=== PATIENT | male | born 1975 | race Hispanic/Latino ===

== ENCOUNTER 2016-08-20 22:22 | Emergency (ER) | payer SELFPAY ==
[~2016-08-20] VITALS: Ht 166.4 cm; Wt 97.8 kg
[~2016-08-20 22:22] MED LIST: AMOXICILLIN500 MG PO; CIPROFLOXACN500 MG PO; CLONIDINE0.1 MG PO; FLOMAX0.4 M1 PO; LORTAB 5-325 MG1 TAB PO; NO HOME MEDS; ZOFRAN4 MG/TAB PO
[2016-08-20] MEDS ORDERED: METFORMIN HCL500 M1 PO (22:44)
[2016-08-20] MEDS ORDERED: HYDROCHLOROT12.5 M1 PO (22:44)
[2016-08-20 23:27] LABS: HEMATOCRIT 46.1 % (39.0-50.0); HEMOGLOBIN 15.6 g/dl (14.0-18.0); IMMATURE GRANULOCYTES 0.4 % (0.0-1.0); MEAN CELL VOLUME 88.3 fL CALC (80.0-100.0); MEAN CORPUSCULAR HGB 29.9 pG CALC (26.0-32.0); MEAN CORPUSCULAR HGB CONC 33.8 g/L CALC (32.0-36.0); NEUT# 7.47 thou/uL (1.82-7.42); RED BLOOD COUNT 5.22 mill/uL (4.70-6.10); RED CELL DISTRI WIDTH 12.4 % (11.5-15.5)
[2016-08-20 23:34] LABS: URINE BILIRUBIN - DIPSTICK NEGATIVE (NEGATIVE); URINE BLOOD DIPSTICK SMALL (NEGATIVE); URINE CLARITY CLEAR; URINE COLOR YELLOW; URINE GLUCOSE - DIPSTICK NEGATIVE (NEGATIVE); URINE KETONE NEGATIVE (NEGATIVE); URINE LEUK ESTERASE NEGATIVE (NEGATIVE); URINE NITRITE - DIPSTICK NEGATIVE (Negative); URINE PH 5.5 (4.5-8.0); URINE PROTEIN - DIPSTICK NEGATIVE (NEG-TRACE); URINE SPECIFIC GRAVITY <=1.005; URINE UROBILINOGEN - DIPSTICK 0.2 E.U./dL (0.2)
[2016-08-20 23:49] LABS: URINE WBC 0-2 WBC/hpf (0-5)
[2016-08-20 23:52] LABS: ALBUMIN 4.5 g/dL (3.2-5.0); ALKALINE PHOSPHATASE 84 u/l (38-126); ANION GAP 19 (6-22 (CALC)); BILIRUBIN, TOTAL 1.5 mg/dL (0.0-1.4); BUN 10 mg/dL (9-20); BUN/CREATININE RATIO 7 (12-20 (CALC)); CALCIUM 9.7 mg/dL (8.4-10.2); CARBON DIOXIDE 26 mmol/l (22-30); CHLORIDE 97 mmol/l (95-108); CREATININE 1.4 mg/dL (0.7-1.3); GFR 55 ML/MIN (>=60 (CALC)); GFR FOR AFR.AMER. > 60 ML/MIN (>=60 (CALC)); GLUCOSE 104 mg/dL (75-110); POTASSIUM 4.4 mmol/l (3.5-5.1); SGOT/AST 23 u/l (17-59); SGPT/ALT 47 u/l (21-72); SODIUM 137 mmol/l (137-146); TOTAL PROTEIN 8.5 g/dL (6.3-8.2)
[2016-08-21] MEDS ORDERED: PERCOCET 5/325M1 TAB PO (00:36)
[2016-08-21 00:50] VITALS: BP 122/77
== END 2016-08-21 00:50 | disposition home or self-care (01) | DRG 694 ==
LOC: ED 22:22
PROVIDERS: Emergency Medicine
DX: N13.2 Hydronephrosis with renal and ureteral calculous obstruction (principal); N28.9 Disorder of kidney and ureter, unspecified; Z87.442 Personal history of urinary calculi

== ENCOUNTER 2019-10-10 07:12 | Observation (INO) | payer SELFPAY ==
[~2019-10-10] VITALS: Ht 170.2 cm; Wt 104.3 kg
[~2019-10-10 07:12] MED LIST changes: +HYDROCHLOROT12.5 M1 PO; +METFORMIN HCL500 M1 PO; +PERCOCET 5/325M1 TAB PO
--- NOTE | 2019-10-10 07:15 | NUR ---
PT AMB TO ROOM WITH STEADY GAIT
[2019-10-10] MEDS ORDERED: ZESTRIL10 M1 PO (07:44)
[2019-10-10 07:56] LABS: HEMATOCRIT 47.6 % (39.0-50.0); HEMOGLOBIN 16.3 g/dl (14.0-18.0); IMMATURE GRANULOCYTES 0.4 % (0.0-5.0); MEAN CELL VOLUME 88.3 fL CALC (80.0-100.0); MEAN CORPUSCULAR HGB 30.2 pG CALC (26.0-32.0); MEAN CORPUSCULAR HGB CONC 34.2 g/dL CAL (32.0-36.0); NEUT# 4.2 thou/uL (1.82-7.42); RED BLOOD COUNT 5.39 mill/uL (4.70-6.10); RED CELL DISTRI WIDTH 12.7 % (11.5-15.5)
--- NOTE | 2019-10-10 08:00 | NUR ---
PT C/O WORSENING CHEST PRESSURE AND SOB; PT MEDICATED PER MAR; MONITORING DEVICES IN PLACE; O2 APPLIED OFR PT COMFORT; ADVISED OF CONTINUED WAIT TIME; CALL LIGHT WITHIN REACH; WILL CONTINUE TO MONITOR
[2019-10-10 08:09] LABS: ALBUMIN 4.7 g/dL (3.2-5.0); ALKALINE PHOSPHATASE 86 u/l (38-126); ANION GAP 15 (6-22 (CALC)); BUN 12 mg/dL (9-20); BUN/CREATININE RATIO 15 (12-20 (CALC)); CARBON DIOXIDE 27 mmol/l (22-30); CHLORIDE 100 mmol/l (95-108); CREATININE 0.8 mg/dL (0.7-1.3); GFR > 60 ML/MIN (>=60 (CALC)); GFR FOR AFR.AMER. > 60 ML/MIN (>=60 (CALC)); POTASSIUM 4.6 mmol/l (3.5-5.1); SODIUM 138 mmol/l (137-146); TOTAL PROTEIN 8.5 g/dL (6.3-8.2)
[2019-10-10 08:16] LABS: BILIRUBIN, TOTAL 1.2 mg/dL (0.0-1.4); SGOT/AST 45 u/l (17-59)
--- NOTE | 2019-10-10 08:19 | NUR ---
PT C/O FEELING CHILLS AND DIZZY; BP READING 65/39 HR 44 ; MD AT BEDSIDE; PT PLACED IN [place] AND EKG REPEATED; MEDICATED WITH ATROPINE PER MD; PT TOLERATED WELL REAPT B/P 92/54 HR 52; 0825 PT REPORTS FEELING BETTER AT THIS TIME HR 72 BP 102/62 PT DENIES CP AT THIS TIME; WILL CONTINUE TO MONITOR
--- NOTE | 2019-10-10 08:54 | NUR ---
PT RESTING ON STRETCHER; DENIES ANY CHEST PRESSURE AT THIS TIME; IVF INFUSING; VSS; DR DAWSON AT BEDSIDE TO DISCUSS POC AND PLAN TO ADMIT; CALL LIGHT WITHIN REACH; WILL CONTINUE TO MONITOR
--- NOTE | 2019-10-10 09:04 | NUR ---
SBAR PRINTED TO FLOOR
--- NOTE | 2019-10-10 10:00 | NUR ---
PT RESTING ON STRETCHER; DENIES ANY CP OR SOB AT THIS TIME; PT ADVISED OF CONTINUE WAIT TIME FOR ADMISSION; VSS; WILL CONTINUE TO MONITOR
[2019-10-10 10:25] VITALS: BP 124/78
--- NOTE | 2019-10-10 10:25 | NUR ---
Admission Note Report Given to: SAUL PRESTON Transported by: X Wheelchair Stretcher Transported with: X Nurse Transporter X Patent IV O2 X Nib Adjuster Location: ICU X [facility]
--- NOTE | 2019-10-10 10:25 | NUR ---
PT ARRIVED TO [facility] VIA WHEELCHAIR, PT AMBULATORY WITH STEADY GAIT, NO SIGNS OF DISTRESS NOTED, RESP EVEN AND UNLABORED. ORIENTED PT TO ROOM AND CALL LIGHT, DISCUSSED POC, DENIES CP AT THIS TIME. ADMISSION ASSESSMENT COMPLETED, CALL LIGHT IN REACH,CONTINUE TO MONITOR.
--- NOTE | 2019-10-10 12:00 | NUR ---
PT RESTING IN BED, NO SIGNS OF DISTRESS NOTED, RESP EVEN AND UNLABORED. VOICES NO NEEDS OR COMPLAINTS AT THIS TIME, CALL LIGHT IN REACH,CONTINUE TO MONITOR.
--- NOTE | 2019-10-10 15:33 | NUR ---
PT RESTING IN BED ON HIS PHONE, NO SIGNS OF DISTRESS NOTED, RESP EVEN AND UNLABORED. CALL LIGHT IN REACH,CONTINUE TO MONITOR.
[2019-10-10 16:30] VITALS: BP 110/70
[2019-10-10 18:48] VITALS: BP 113/63
--- NOTE | 2019-10-10 20:10 | NUR ---
PT RESTING IN BED, ALERT AND ORIENTED. RESPIRATIONS EVEN AND UNLABORED ON RA. LUNGS SOUND CLEAR. PEDAL PULSES STRONG. PT DENIES ANY PAIN OR DISCOMFORT AT THIS TIME SAFETY PRECAUTIONS IN PLACE. WILL CONTINUE TO [place].
[2019-10-11 00:11] VITALS: BP 122/71
--- NOTE | 2019-10-11 00:12 | NUR ---
PT RESTING IN BED, RESPIRATIONS EVEN AND UNLABORED ON RA. TELE IN PLACE. NO S/S OF DISTRESS AT THIS TIME. SAFTY PRECAUTIONS IN PLACE. WILL CONTINUE TO MONITOR.
--- NOTE | 2019-10-11 03:37 | NUR ---
PT RESTING IN BED, NO S/S OF DISTRESS AT THIS TIME. SAFETY PRECAUTIONS IN PLACE. WILL CONTINUE TO MONITOR.
[2019-10-11 04:13] VITALS: BP 117/73
[2019-10-11 05:27] LABS: ANION GAP 13 (6-22 (CALC)); BUN 13 mg/dL (9-20); BUN/CREATININE RATIO 15 (12-20 (CALC)); CARBON DIOXIDE 27 mmol/l (22-30); CHLORIDE 103 mmol/l (95-108); CREATININE 0.9 mg/dL (0.7-1.3); GFR > 60 ML/MIN (>=60 (CALC)); GFR FOR AFR.AMER. > 60 ML/MIN (>=60 (CALC)); POTASSIUM 4.8 mmol/l (3.5-5.1); SODIUM 137 mmol/l (137-146)
[2019-10-11 05:30] LABS: CHOLESTEROL HDL RATIO 5.7 (<4.4 (CALC))
--- NOTE | 2019-10-11 07:30 | NUR ---
RECIEVED REPORT FROM HILDA FLOOD. PT RESTING IN RECYLINER UPON ENTERING ROOM.INTODUCED SELF TO PT AND DISCUSSED POC. ASSESSMENT AND VITALS COMPLETED AT THIS TIME. BP 127/77, HR 50, O2 96% ON ROOM AIR. RESPIRATIONS ARE EVEN AND UNLABORED WITH NO SIGNS OF DISTRESS. LUNG SOUNDS ARE CLEAR. HEART RHYTHM IS NORMAL WITH TELE IN PLACE. BOWEL SOUNDS ARE ACTIVE IN ALL QUADRANTS WITH NO TENDERNESS. LAST REPORTED BM 10/10/19. RADIAL AND PEDAL PULSES ARE STRONG WITH NORMAL CAPILLARY REFILL. SKIN IS WARM AND DRY WITH NO BREAKDOWN. PT DENIES ANY PAIN OR DISCOMFORTS AT THIS TIME. ALL SAFETY PRECAUTIONS REMAIN IN PLACE WITH CALL LIGHT IN REACH.WILL CONTINUE TO MONITOR
[2019-10-11 07:47] VITALS: BP 127/77
[2019-10-11 11:27] VITALS: BP 128/90
--- NOTE | 2019-10-11 12:33 | NUR ---
PT SITTING IN RECYLINER ON PHONE. RESPIRATIONS ARE EVEN AND UNLABORED WITH NO SIGNS OF DISTRESS. PT DENIES ANY PAIN OR DISCOMFORTS AT THIS TIME.ALL SAFTEY PRECAUTIONS IN PLACE WITH CALL LIGHT IN REACH. WILL CONTINUE TO MONITOR
--- NOTE | 2019-10-11 12:39 | NUR ---
DR. STRONG AND FIFI, ANDEB AT BEDSIDE DISCUSSING POC
--- NOTE | 2019-10-11 14:57 | NUR ---
IV REMOVED WITH CATHATER STILL INTACT. PT TOLERATED WELL. EDUCATED PT ON DISCHARGE INSTRUCTIONS AND EDUCATION. PT VERBALIZED UNDERSTANDING. AWAITING FOR TRANSPORTATION AT THIS TIME. ALL SAFTEY PRECAUTIONS IN PLACE WITH CALL LIGHT IN REACH. WILL CONTINUE TO MONITOR
--- NOTE | 2019-10-11 15:07 | NUR ---
Discharge instructions given. Patient verbalizes understanding of same. Discharged in stable condition via Wheelchair to Home with family. All belongings sent with pt. PT LEFT FLOOR IN STABLE CONDITION VIA WHEELCHAIR ACCOMPAINED BY NAWAF JONES. ALL BELONGINGS AND DISCHARGE INSTRUCTIONS LEFT WITH PT
== END 2019-10-11 15:00 | disposition home or self-care (01) | DRG 313 ==
LOC: ED 07:12 → ED-I 08:51 → ED 09:04 → MS2 09:05
PROVIDERS: Family Medicine; Nurse Practitioner Family; ADMIT Internal Medicine; ATTEND Internal Medicine
DX: R07.9 Chest pain, unspecified (principal); I10 Essential (primary) hypertension; E11.9 Type 2 diabetes mellitus without complications; R00.1 Bradycardia, unspecified; I95.2 Hypotension due to drugs; T40.2X5A Adverse effect of other opioids, initial encounter; Z79.84 Long term (current) use of oral hypoglycemic drugs; Z20.828 Contact with and (suspected) exposure to other viral communicable diseases
CPT/HCPCS: G0378; J1650

== ENCOUNTER 2020-11-21 03:58 | Emergency (ER) | payer OTHER ==
[~2020-11-21 03:58] MED LIST changes: +ZESTRIL10 M1 PO
[2020-11-21 04:50] LABS: HEMATOCRIT 48.6 % (39.0-50.0); HEMOGLOBIN 16.2 g/dl (14.0-18.0); IMMATURE GRANULOCYTES 0.5 % (0.0-5.0); MEAN CELL VOLUME 91.2 fL CALC (80.0-100.0); MEAN CORPUSCULAR HGB 30.4 pG CALC (26.0-32.0); MEAN CORPUSCULAR HGB CONC 33.3 g/dL CAL (32.0-36.0); NEUT# 3.84 thou/uL (1.82-7.42); RED BLOOD COUNT 5.33 mill/uL (4.70-6.10); RED CELL DISTRI WIDTH 12.5 % (11.5-15.5)
[2020-11-21 04:53] LABS: URINE BILIRUBIN - DIPSTICK NEGATIVE (NEGATIVE); URINE BLOOD DIPSTICK NEGATIVE (NEGATIVE); URINE COLOR YELLOW; URINE GLUCOSE - DIPSTICK 500 mg/dL (NEGATIVE); URINE KETONE NEGATIVE (NEGATIVE); URINE LEUK ESTERASE NEGATIVE (NEGATIVE); URINE PROTEIN - DIPSTICK NEGATIVE (NEG-TRACE); URINE UROBILINOGEN - DIPSTICK 0.2 E.U./dL (0.2)
[2020-11-21 05:02] LABS: URINE NITRITE - DIPSTICK NEGATIVE (Negative)
[2020-11-21 05:09] LABS: ALBUMIN 4.2 g/dL (3.2-5.0); ALKALINE PHOSPHATASE 63 u/l (38-126); ANION GAP 12 (6-22 (CALC)); BUN 12 mg/dL (9-20); BUN/CREATININE RATIO 14 (12-20 (CALC)); CARBON DIOXIDE 26 mmol/l (22-30); CHLORIDE 102 mmol/l (95-108); CREATININE 0.9 mg/dL (0.7-1.3); GFR > 60 ML/MIN (>=60 (CALC)); GFR FOR AFR.AMER. > 60 ML/MIN (>=60 (CALC)); POTASSIUM 4.1 mmol/l (3.5-5.1); SGOT/AST 39 u/l (17-59); SODIUM 136 mmol/l (137-146); TOTAL PROTEIN 8.1 g/dL (6.3-8.2)
[2020-11-21 05:13] LABS: BILIRUBIN, TOTAL 0.5 mg/dL (0.0-1.4)
[2020-11-21 05:21] LABS: MYOGLOBIN 38 ng/mL (0 - 121)
[2020-11-21] MEDS ORDERED: NAPROXEN500 MG PO (06:26)
[2020-11-21 06:48] VITALS: BP 135/72
== END 2020-11-21 06:56 | disposition home or self-care (01) | DRG 313 ==
LOC: ED 03:58
PROVIDERS: Emergency Medicine
DX: R07.89 Other chest pain (principal); I10 Essential (primary) hypertension; E11.9 Type 2 diabetes mellitus without complications; Z79.84 Long term (current) use of oral hypoglycemic drugs; Z20.822 Contact with and (suspected) exposure to COVID-19

== ENCOUNTER 2021-07-28 02:56 | Emergency (ER) | payer OTHER ==
[2021-07-28] VITALS (7 sets, daily range): BP systolic 125–149; BP diastolic 88–102
[~2021-07-28] VITALS: Ht 170.2 cm; Wt 102.0 kg
[~2021-07-28 02:56] MED LIST changes: +NAPROXEN500 MG PO
[2021-07-28] MEDS ORDERED: GLIMEPIRIDE2 MG PO (03:32)
[2021-07-28] MEDS ORDERED: ASPIRIN81 MG PO (03:33)
[2021-07-28 03:46] LABS: HEMATOCRIT 49.1 % (39.0-50.0); HEMOGLOBIN 16.1 g/dl (14.0-18.0); IMMATURE GRANULOCYTES 0.4 % (0.0-5.0); MEAN CELL VOLUME 90.4 fL CALC (80.0-100.0); MEAN CORPUSCULAR HGB 29.7 pG CALC (26.0-32.0); MEAN CORPUSCULAR HGB CONC 32.8 g/dL CAL (32.0-36.0); NEUT# 3.38 thou/uL (1.82-7.42); RED BLOOD COUNT 5.43 mill/uL (4.70-6.10); RED CELL DISTRI WIDTH 12.1 % (11.5-15.5)
[2021-07-28 04:02] LABS: ALBUMIN 4.2 g/dL (3.2-5.0); ALKALINE PHOSPHATASE 64 u/l (38-126); ANION GAP 14 (6-22 (CALC)); BILIRUBIN, TOTAL 0.6 mg/dL (0.0-1.4); BUN 10 mg/dL (9-20); BUN/CREATININE RATIO 12 (12-20 (CALC)); CARBON DIOXIDE 26 mmol/l (22-30); CHLORIDE 102 mmol/l (95-108); CREATININE 0.9 mg/dL (0.7-1.3); GFR > 60 ML/MIN (>=60 (CALC)); GFR FOR AFR.AMER. > 60 ML/MIN (>=60 (CALC)); POTASSIUM 4.1 mmol/l (3.5-5.1); SGOT/AST 46 u/l (17-59); SODIUM 137 mmol/l (137-146)
[2021-07-28 04:14] LABS: MYOGLOBIN 35 ng/mL (0 - 121)
== END 2021-07-28 05:08 | disposition home or self-care (01) | DRG 305 ==
LOC: ED 02:56
PROVIDERS: Emergency Medicine
DX: I10 Essential (primary) hypertension (principal); E11.9 Type 2 diabetes mellitus without complications; E78.00 Pure hypercholesterolemia, unspecified; Z79.84 Long term (current) use of oral hypoglycemic drugs